=== PATIENT | male | born 1970 | race Caucasian/White ===

== ENCOUNTER 2017-05-18 13:44 | Emergency (ER) | payer SELFPAY ==
[~2017-05-18] VITALS: Ht 172.7 cm; Wt 77.2 kg
[2017-05-18 17:28] LABS: HEMATOCRIT 52.6 % (38.0-50.0); MCH 31.6 PG (29.0-34.0); MCHC 34.4 G/DL (30.0-36.0); MEAN PLAT.VOLUME 9.1 uM^3 (9.0-12.4); PLATELET COUNT 215 K/uL (156-360); RBC DIS.WIDTH-CV 12.9 % (11.8-14.6); RBC DIS.WIDTH-SD 43.8 % (39-53); RED BLOOD COUNT 5.72 M/uL (4.00-5.50); WHITE BLOOD COUNT 11.8 K/uL (4.1-10.2)
[2017-05-18 17:40] LABS: CHLORIDE 106 mEq/L (99-109); POTASSIUM 4.2 mEq/L (3.7-5.4); SODIUM 143 mEq/L (136-147)
[2017-05-18 17:42] LABS: GLUCOSE 96 mg/dL (70-99)
[2017-05-18 17:43] LABS: ANION GAP 19 MEQ/L (2-14)
[2017-05-18 17:44] LABS: TOTAL BILIRUBIN 0.3 mg/dL (0.0-1.0)
[2017-05-18 17:45] LABS: SERUM ETHYL ALCOHOL 405 mg/dL
[2017-05-18 17:46] LABS: ALKALINE PHOSPHATASE 76 IU/L (3-129)
[2017-05-18 17:47] LABS: UREA NITROGEN (BUN) 13 mg/dL (9-23)
[2017-05-18 17:56] LABS: GFR ESTIMATE (CALCULATED) > 59 mL/min/
[2017-05-19 04:08] LABS: ADD MIUA? YES; BILIRUBIN NEGATIVE; BLOOD SMALL; COLOR YELLOW ((YELLOW)); GLUCOSE (STRIP) NEGATIVE; KETONES 5; LEUKOCYTES NEGATIVE; NITRITE NEGATIVE; PROTEIN (STRIP) 100; SPECIFIC GRAVITY 1.026 (1.000-1.030); UROBILINOGEN 0.2 MG/DL (0.2-1.0)
[2017-05-19 04:17] LABS: AMPHETAMINE NEGATIVE (500 ng/mL); BACTERIA RARE /HPF; BARBITURATES NEGATIVE (200 ng/mL); BENZODIAZEPINES PRESUMPTIVE POSITIVE (150 ng/mL); COCAINE NEGATIVE (150 ng/mL); EPITHELIAL CELLS RARE /HPF; HYALINE CASTS TNTC /LPF; INTERNAL CONTROLS VALID? YES; METHADONE NEGATIVE (200 ng/mL); METHAMPHETAMINE NEGATIVE (500 ng/mL); MUCUS 2+ /LPF; OPIATES (MORPHINE) NEGATIVE (100 ng/mL); OXYCODONE NEGATIVE (100 ng/mL); PHENCYCLIDINE NEGATIVE (25 ng/mL); PROPOXYPHENE NEGATIVE (300 ng/mL); THC CANNABINOIDS PRESUMPTIVE POSITIVE (50 ng/mL); TRICYCLIC ANTIDEPRESSANTS NEGATIVE (300 ng/mL); WHITE BLOOD CELLS 0-5 /HPF (0-5)
[2017-05-19 04:18] LABS: ADD MEDTOX COMMENT Y
[2017-05-19 04:54] LABS: BENZODIAZEPINES, URINE SCREEN POSITIVE (200 ng/mL)
[2017-05-19 19:04] VITALS: BP 137/86
== END 2017-05-19 19:19 ==
LOC: EME 13:44
PROVIDERS: Emergency Medicine
DX: F32.9 Major depressive disorder, single episode, unspecified (principal); F10.229 Alcohol dependence with intoxication, unspecified; Y90.8 Blood alcohol level of 240 mg/100 ml or more; R45.851 Suicidal ideations; Z59.0 Homelessness; F17.200 Nicotine dependence, unspecified, uncomplicated
CPT/HCPCS: 80053; 81003; 84999; 85027; 90837; 99281; 99285; G0480